=== PATIENT | male | born 1975 | race Two or more races ===

== ENCOUNTER 2025-03-15 12:21 | Emergency (ER) | payer MEDICAID ==
[~2025-03-15] VITALS: Ht 154.9 cm; Wt 86.2 kg
[~2025-03-15 12:21] MED LIST: AMLO-212 PO; AMOX-430 PO; ATEN50TA PO; CALC-770 PO; CLON0.1T PO; ERGO500040 PO; HYDR-4384 PO; IBAN150T16 PO; TRAM50TA2 PO
[2025-03-15] MEDS ORDERED: ONDANSETRON HCL/PF 4 MG/2 ML VIAL ONE (13:08)
[2025-03-15] MEDS ORDERED: MORPHINE SULFATE INJ 4 MG/ML DISP.SYRIN ONE (13:08)
[2025-03-15 13:09] LABS: PLATELET COUNT (AUTO) 216 K/uL (150-450); RED BLOOD CELL COUNT(AUTO) 5.71 MIL/uL (4.5-6.0); RED CELL DISTRIBUTION WIDTH 13.6 % (11.5-15.0); WHITE BLOOD COUNT (AUTO) 12.4 K/uL (4.3-11.0)
[2025-03-15 13:16] LABS: APPEARANCE,URINE CLEAR (CLEAR); BLOOD, URINE TRACE-INTA Ery/uL (NEGATIVE); LEUKOCYTE ESTERASE ,URINE NEGATIVE (NEGATIVE); NITRITE, URINE NEGATIVE (NEGATIVE); UGLUCOSE NEGATIVE (NEGATIVE)
[2025-03-15 13:20] LABS: ADD URINE CULTURE NO
[2025-03-15 13:21] LABS: SQUAMOUS EPITHELIAL CELL,UR None Seen /HPF (None Seen)
[2025-03-15] MEDS: IV LR 1000 ML 1,000 ML IV ONE (13:27)
[2025-03-15 13:32] LABS: ASPARTATE AMINOTRANSFERASE 16.0 U/L (15-37); CALCIUM, SERUM 8.9 mg/dL (8.5-10.1); CREATININE 1.5 mg/dL (0.6-1.3); SODIUM SERUM 137.0 mmol/L (136-145); TOTAL PROTEIN, SERUM 7.5 g/dL (6.4-8.2); UREA NITROGEN, BLOOD 15.0 mg/dL (7-18)
[2025-03-15] MEDS: ONDANSETRON HCL/PF 4 MG/2 ML VIAL IV ONE (13:33)
[2025-03-15] MEDS: MORPHINE SULFATE INJ 2 MG/ML DISP.SYRIN IV ONE (13:35)
[2025-03-15] MEDS ORDERED: HYDR-4303 PO (14:22)
[2025-03-15] MEDS ORDERED: TAMS-12 PO (14:23)
[2025-03-15] MEDS ORDERED: ONDA4TAB11 PO (14:23)
[2025-03-15] MEDS ORDERED: HYDR-3972 PO (14:39)
[2025-03-15 15:13] VITALS: BP 144/71; TEMP 98.4; O2SAT 99
== END 2025-03-15 15:15 | disposition home or self-care (01) ==
LOC: ER 12:26
DX: N13.2 Hydronephrosis with renal and ureteral calculous obstruction (principal); I11.9 Hypertensive heart disease without heart failure; M81.0 Age-related osteoporosis without current pathological fracture; Z79.899 Other long term (current) drug therapy; Z87.442 Personal history of urinary calculi; Z88.6 Allergy status to analgesic agent
CPT/HCPCS: 99285; 74176; 96374; 96361; 96375; 85025; 80048; 83690; 80076; 81001; 36415; J2270; J2405; J7120 ×2